=== PATIENT | female | born 1980 | race Caucasian/White ===

== ENCOUNTER 2022-02-04 09:04 | Day surgery (SDC) | payer MEDICAID, SELFPAY ==
[~2022-02-04] VITALS: Ht 157.5 cm; Wt 114.8 kg
[2022-02-04] MEDS ORDERED: BUPIVACAINE /PF 0.5% 30 ML VIAL ONE (12:07)
[2022-02-04] MEDS ORDERED: PROPOFOL 200MG/ 20ML VIAL (DIPRIVAN) IV ONE (12:07)
[2022-02-04] MEDS ORDERED: ROCURONIUM BROMIDE 10 MG/ML (ZEMURON) ONE (12:07)
[2022-02-04] MEDS ORDERED: SEVOFLURANE 15 MIN GAS INH ONE (12:07)
[2022-02-04] MEDS ORDERED: SUCCINYLCHOLINE CHLORIDE 20 MG/ML(QUELICIN) ONE (12:07)
[2022-02-04] MEDS ORDERED: NS 250 ML IV.SOLN IV ONE (12:07)
[2022-02-04] MEDS ORDERED: NS IRRIG SOLN 1000 ML IR ONE (12:07)
[2022-02-04] MEDS ORDERED: ONDANSETRON HCL 4 MG/2 ML VIAL ONE (12:07)
[2022-02-04] MEDS ORDERED: ONDANSETRON HCL 4 MG/2 ML VIAL IVP PRN (12:45)
[2022-02-04] MEDS ORDERED: KETOROLAC TROMETHAMINE 30 MG VIAL IVP PRN (12:45)
[2022-02-04] MEDS ORDERED: IBUPROFEN 600 MG TABLET PO ONE (12:45)
[2022-02-04] MEDS ORDERED: HYDROmorphone 1 MG/ML INJ. CARTRIDGE IVP PRN (12:45)
[2022-02-04 15:22] VITALS: BP_SYST 123
== END 2022-02-04 15:00 | disposition home or self-care (01) ==
LOC: SMU 09:04 → SDS 09:04
PROVIDERS: ATTEND Obstetrics & Gynecology
DX: Z30.2 Encounter for sterilization (principal); E66.01 Morbid (severe) obesity due to excess calories; Z79.899 Other long term (current) drug therapy
CPT/HCPCS: 36415; 58661; 86886; 86900; 86901; 87426; J0330; J2405; J2704; J3490; J7050